=== PATIENT | female | born 1965 | race Caucasian/White ===

== ENCOUNTER 2017-05-31 08:26 | Emergency (ER) | END 2017-05-31 10:51 | disposition home or self-care (01) ==

== ENCOUNTER 2017-06-06 19:14 | Emergency (ER) | END 2017-06-06 21:25 | disposition home or self-care (01) ==

== ENCOUNTER 2017-10-13 02:59 | Emergency (ER) | END 2017-10-13 06:59 | disposition home or self-care (01) ==

== ENCOUNTER 2017-11-05 16:09 | Emergency (ER) | END 2017-11-05 21:38 | disposition home or self-care (01) ==

== ENCOUNTER 2018-08-22 22:19 | Emergency (ER) | payer OTHER ==
[~2018-08-22] VITALS: Ht 157.5 cm; Wt 62.6 kg
[~2018-08-22 22:19] MED LIST: HYDR-4011 PO; NEO500 PO; RIFA550T4 PO
[2018-08-22 22:41] VITALS: Ht 157.5 cm; Wt 62.6 kg
[2018-08-23] MEDS ORDERED: LIDOCAINE/MYLANTA 40 ML BTL PO ONE (02:00)
[2018-08-23] MEDS ORDERED: CEPH-443 PO (02:21)
[2018-08-23] MEDS ORDERED: OMEP40CA6 PO (02:21)
[2018-08-23 02:43] VITALS: BP 121/56; PULSE 60; RESP 16
--- NOTE | 2018-08-24 23:13 | ERD ---
ER Documentation Chief Complaint Chief Complaint urine smells x 3 days, diarrhea lately, too HPI To the emergency room with multiple complaints. Patient actually came in to bring in daughter however states "I am here so I might as well have you check me out too." Patient states she has been having abdominal pain for 1 year that starts at her umbilicus and "fans out" she states she has had multiple workups including EGDs, colonoscopies, CT scans, and "nobody can tell me what is wrong with me." She has primary care doctor and GI doctor, she has been diagnosed with GERD and IBS. She states her symptoms are basically the same today except over the last week she has noticed an unusual odor in her urine. She reports subjective fevers. Denies pelvic pain, denies flank pain, denies hematuria, denies frequency or burning with urination. ROS All systems reviewed and are negative except as per history of present illness. Medications Home Meds Active Scripts Omeprazole* (Omeprazole*) 40 Mg Capsule.dr, 40 MG PO DAILY for 30 Days, #30 CAP Prov:EFREM ARENAS NP 08/23/18 Cephalexin* (Keflex*) 500 Mg Capsule, 500 MG PO BID for 7 Days, CAP Prov:EFREM ARENAS ENVIRONMENTAL SAMPLER 08/23/18 Hydrocodone/Acetaminophen ([place] 5-325 Tablet) 1 Each Tablet, 1 TAB PO Q6H PRN for PAIN, #7 TAB Prov:LEKKOS,APOSTOLOS A. DO 11/05/17 Neomycin Sulfate* (Neomycin Sulfate*) 500 Mg Tab, 500 MG PO BID, #10 TAB Prov:LEKKOS,APOSTOLOS A. DO 11/05/17 Rifaximin* (Xifaxan*) 550 Mg Tablet, 550 MG PO BID for 10 Days, TAB Prov:LEKKOS,APOSTOLOS A. 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,GALLBLADDER REMOVAL ) Anesthesia Reaction: No Hx Neurological Disorder: No Hx Respiratory Disorders: No Hx Cardiac Disorders: No Hx Psychiatric Problems: No Hx Miscellaneous Medical Probl: Yes (migraine headache) Hx Alcohol Use: No Hx Substance Use: No Hx Tobacco Use: No Smoking Status: Never smoker FmHx Family History: No diabetes, No coronary disease, No other Physical Exam Vitals Vital Signs Date Temp Pulse Resp B/P (MAP) Pulse Ox O2 O2 Flow FiO2 Time Delivery Rate 08/23/18 97.7 60 16 121/56 98 Room Air 02:43 (77) 08/22/18 98.7 71 18 134/78 98 22:41 (96) Physical Exam General: alert and oriented x4, no acute distress HEENT: normocephalic, atraumatic, PERRL, tympanic membranes normal, no nasal discharge, neck nontender, without lymphadenopathy, pharynx nonerythematous Cardiovascular: regular rate and rhythm, normal peripheral perfusion Respiratory: lungs clear to auscultation and percussion, without rales, without rhonchi, without wheezing, normal breath sounds, respirations non labored, normal air movement in lung reid Gastrointestinal: abdomen soft, non-distended, no tenderness to palpation in the suprapubic area, no guarding, no rebound Psychiatric: demonstrates good judgment and reason and normal affect during examination Results 24 hrs Laboratory Tests Test 08/23/18 01:55 Bedside Urine pH (LAB) 7.0 Bedside Urine Protein (LAB) Negative Bedside Urine Glucose (UA) Negative Bedside Urine Ketones (LAB) Negative Bedside Urine Blood Trace-intact Bedside Urine Nitrite (LAB) Negative Bedside Urine Leukocyte Esterase (L Trace Current Medications Medications Dose Sig/Jermaine Start Time Status Last (Trade) Ordered Route PRN Stop Time Admin Dose Reason Admin 40 ml ONCE ONCE 08/23/18 DC 08/23/18 Miscellaneous PO 02:00 02:02 Medication 08/23/18 02:01 (Gi Cocktail (2)) Procedures/MDM This 53 yo female presents with dysuria symptoms of malodorous urine and frequency. Her urine test indicates UTI due to presence of hematuria and leukocytes. Patient was instructed on self care including increasing hydration, completing antibiotics, and need to follow-up with PMD to reassess hematuria. There is low suspicion for pyelonephritis, vaginitis, STI, or interstitial cystitis due to absence of clinical findings that would support a diagnosis more serious than uncomplicated UTI. These diagnoses have been considered and excluded clinically. Nonetheless, it is understood by both the patient and provider that no clinical or diagnostic assessment can entirely exclude such diseases. Patient has been instructed on signs and symptoms of concern or with evolving condition with strict instructions to return to ED for reevaluation. Departure Diagnosis: Primary Impression: GERD (gastroesophageal reflux disease) Additional Impression: Urinary tract infection Condition: Stable Patient Instructions: Understanding Urinary Tract Infections (UTIs), When Your Child Has a Urinary Tract Infection (UTI) Additional Instructions: Call your primary care doctor TOMORROW for an appointment during the next 1 WEEK.Tell the civil engineering assistant that you were referred from this facility.See the doctor sooner or return here if your condition worsens before your appointment time. Follow-up with your primary care doctor for repeat urinalysis to check for blood in urine within 6 weeks of completing antibiotics. Take entire course of antibiotic. Stay well-hydrated. Add probiotic to your diet to help with your GI symptoms and to prevent secondary infection such as a yeast infection from taking antibiotics for UTI. You can get probiotics through yogurt that has live active yogurt cultures or probiotic pills. Return to the emergency room immediately with change or worsening in her symptoms. EFREM ARENAS NP Aug 24, 2018 23:13
== END 2018-08-23 02:43 | disposition home or self-care (01) ==
LOC: FTE 22:19
DX: K21.9 Gastro-esophageal reflux disease without esophagitis (principal); N39.0 Urinary tract infection, site not specified
CPT/HCPCS: 81003; 99283

== ENCOUNTER 2018-10-15 11:23 | Emergency (ER) | payer SELFPAY ==
[~2018-10-15] VITALS: Ht 157.5 cm; Wt 62.8 kg
[~2018-10-15 11:23] MED LIST changes: +CEPH-443 PO; +OMEP40CA6 PO
[2018-10-15 11:28] VITALS: Ht 157.5 cm; Wt 62.8 kg
[2018-10-15] MEDS ORDERED: SOD CHLORIDE 0.9% 500 ML IV STA (16:13)
[2018-10-15] MEDS ORDERED: KETOROLAC 15 MG INJ IV STA (16:13)
[2018-10-15] MEDS ORDERED: ONDANSETRON 4 MG INJ IV STA (16:13)
--- NOTE | 2018-10-15 16:15 | ERD ---
ER Documentation Chief Complaint Chief Complaint Pt with chronic AP X 1 year and pelvic pain X 1 week, frequent UTI. HPI 53-year-old female, with history of chronic abdominal pain for more than 1 year, presents to the emergency department, complaining of worsening of pain during the last week. The patient also reports pain with urination no specific dysuria, no hematuria, no diarrhea or constipation. The patient denies fever or chills, no vaginal discharge. Her LMP was 1018. ROS All systems reviewed and are negative except as per history of present illness. Medications Home Meds Active Scripts Omeprazole* (Omeprazole*) 40 Mg Capsule.dr, 40 MG PO DAILY for 30 Days, #30 CAP Prov:EFREM ARENAS MICROBIOLOGICAL ANALYST 08/23/18 Cephalexin* (Keflex*) 500 Mg Capsule, 500 MG PO BID for 7 Days, CAP Prov:EFREM ARENAS MICROBIOLOGICAL ANALYST 08/23/18 Hydrocodone/Acetaminophen ([place] 5-325 Tablet) 1 Each Tablet, 1 TAB PO Q6H PRN for PAIN, #7 TAB Prov:LEKKOS,APOSTOLOS A. DO 11/05/17 Neomycin Sulfate* (Neomycin Sulfate*) 500 Mg Tab, 500 MG PO BID, #10 TAB Prov:LEKKOS,APOSTOLOS A. DO 11/05/17 Rifaximin* (Xifaxan*) 550 Mg Tablet, 550 MG PO BID for 10 Days, TAB Prov:LEKKOS,APOSTOLOS A. 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,GALLBLADDER REMOVAL ) Anesthesia Reaction: No Hx Neurological Disorder: No Hx Respiratory Disorders: No Hx Cardiac Disorders: No Hx Psychiatric Problems: No Hx Miscellaneous Medical Probl: Yes (migraine headache) Hx Alcohol Use: No Hx Substance Use: No Hx Tobacco Use: No Smoking Status: Never smoker FmHx Family History: No diabetes, No coronary disease Physical Exam Vitals Vital Signs Date Temp Pulse Resp B/P (MAP) Pulse Ox O2 O2 Flow FiO2 Time Delivery Rate 10/15/18 98.3 74 15 133/65 99 11:28 (87) Physical Exam Const: No acute distress Head: Atraumatic Eyes: Normal Conjunctiva ENT: Normal External Ears, Nose and Mouth. Neck: Full range of motion. No meningismus. Resp: Clear to auscultation bilaterally Cardio: Regular rate and rhythm, no murmurs Abd: Soft, non tender, non distended. Normal bowel sounds Skin: No petechiae or rashes Back: No midline or flank tenderness Ext: No cyanosis, or edema Neur: Awake and alert Psych: Normal Mood and Affect Result Diagram: 10/15/18 1642 10/15/18 1722 Results 24 hrs Laboratory Tests Test 10/15/18 16:38 10/15/18 16:42 10/15/18 17:22 POC Beta HCG, Qualitative NEGATIVE White Blood Count 8.4 10^3/ul Red Blood Count 4.78 10^6/ul Hemoglobin 14.4 g/dl Hematocrit 42.7 % Mean Corpuscular Volume 89.3 fl Mean Corpuscular Hemoglobin 30.1 pg Mean Corpuscular 33.7 g/dl Hemoglobin Concent Red Cell Distribution Width 12.7 % Platelet Count 289 10^3/UL Mean Platelet Volume 10.4 fl Immature Granulocytes % 0.500 % Neutrophils % 68.2 % Lymphocytes % 21.7 % Monocytes % 8.3 % Eosinophils % 0.8 % Basophils % 0.5 % Nucleated Red Blood Cells % 0.0 /100WBC Immature Granulocytes # 0.040 10^3/ul Neutrophils # 5.8 10^3/ul Lymphocytes # 1.8 10^3/ul Monocytes # 0.7 10^3/ul Eosinophils # 0.1 10^3/ul Basophils # 0.0 10^3/ul Nucleated Red Blood Cells # 0.0 10^3/ul Urine Color YELLOW Urine Clarity SLIGHTLY CLOUDY Urine pH 5.0 Urine Specific [place] 1.013 Urine Ketones NEGATIVE mg/dL Urine Nitrite NEGATIVE mg/dL Urine Bilirubin NEGATIVE mg/dL Urine Urobilinogen NEGATIVE mg/dL Urine Leukocyte Esterase NEGATIVE Bryson/ul Urine Microscopic RBC 3 /HPF Urine Microscopic WBC 1 /HPF Urine Squamous Epithelial Cells FEW /HPF Urine Bacteria FEW /HPF Urine Hemoglobin 1+ mg/dL Urine Glucose NEGATIVE mg/dL Urine Total Protein NEGATIVE mg/dl Sodium Level 142 mmol/L Potassium Level 3.9 mmol/L Chloride Level 108 mmol/L Carbon Dioxide Level 25 mmol/L Anion Gap 9 Blood Urea Nitrogen 12 mg/dl Creatinine 0.51 mg/dl Est Glomerular Filtrat Rate mL/min > 60 mL/min Glucose Level 86 mg/dl Calcium Level 8.6 mg/dl Total Bilirubin 0.2 mg/dl Direct Bilirubin 0.00 mg/dl Indirect Bilirubin 0.2 mg/dl Aspartate Amino Transf (AST/SGOT) 22 IU/L Alanine 17 IU/L Aminotransferase (ALT/SGPT) Alkaline Phosphatase 80 IU/L Total Protein 7.2 g/dl Albumin 4.0 g/dl Globulin 3.20 g/dl Albumin/Globulin Ratio 1.25 Lipase 56 U/L Current Medications Medications Dose Sig/Jermaine Start Time Status Last (Trade) Ordered Route PRN Stop Time Admin Dose Reason Admin Sodium 500 ml @ Q1H STAT 10/15/18 DC 10/15/18 Chloride 500 mls/hr IV 16:13 10/15/18 16:40 17:12 Ondansetron 4 mg ONCE STAT 10/15/18 DC 10/15/18 HCl (Zofran IV 16:13 10/15/18 16:40 Inj) 16:16 Ketorolac 15 mg ONCE STAT 10/15/18 DC 10/15/18 Tromethamine IV 16:13 10/15/18 16:40 (Toradol) 16:16 IV Flush 10 ml STK-MED 10/15/18 DC (NS 10 ml) ONCE .ROUTE 18:01 10/15/18 18:02 Sodium 100 ml @ ud STK-MED 10/15/18 DC Chloride ONCE .ROUTE 18:10/15/18 18:02 Iohexol 150 ml STK-MED 10/15/18 DC (Omnipaque ONCE .ROUTE 18:10/15/18 300mg/ ml) 18:02 Procedures/MDM Vital signs stable. Differential diagnosis include but not limited to: UTI, colitis, gastroenteritis, kidney stones, irritable bowel syndrome, inflammatory bowel syndrome, malabsorption syndrome, cholelithiasis, food intolerance, medication side effect, pancreatitis, diverticulitis, bowel obstruction. Physical examination and clinical presentation consistent most likely with chronic abdominal pain without evidence of acute abdomen. During the ED course the patient remained stable, no new complaints. The patient received treatment with IV fluids and IV medications presenting overall improvement of the symptoms. Results and clinical impression discussed with the patient who agrees with management. The patient is stable to be treated outpatient and will be discharged home; some side effects of prescribed medications (headache, rash, n ausea, vomiting, diarrhea, drowsiness, habituation, bleeding, hypertension, interactions with other medications) were reviewed. The patient was informed that the evaluation in the emergency department has been done to rule out an acute emergency, therefore, chronic conditions like malignancy or other diseases have not been evaluated; therefore, the patient was instructed to follow up with the primary care provider in the next 48h. If symptoms persist, worsen or new symptoms develop, then patient should return to the ED immediately. Instructions explained and given directly by me to the patient with acknowledgment and demonstrated understanding. Disclaimer: Inadvertent spelling and grammatical errors are likely due to EHR/dictation software use and do not reflect on the overall quality of patient care. Also, please note that the electronic time recorded on this note does not necessarily reflect the actual time of the patient encounter. Departure Diagnosis: Primary Impression: Abdominal pain Condition: Stable Additional Instructions: Thank you very much for allowing us to participate in your care. Your health and safety is our top priority at [facility]. The evaluation in the emergency department has been done to rule out an acute emergency, therefore, chronic conditions like malignancy or other diseases have not been evaluated; therefore, you need to follow up with a primary care provider in the next 48h. If symptoms persist, worsen or new symptoms develop, then patient should return to the ED immediately. Call your primary care doctor TOMORROW for an appointment during the next 2-4 days and bring all the information provided. Have prescriptions filled and follow precisely the directions on the label. If the symptoms get worse and your provider is unavailable, return to the Emergency Department immediately. SRINIVAS CLAY MD October 15, 2018 16:15
[2018-10-15] MEDS ORDERED: IOHEXOL 300MG/ML 150 ML BTL ONE (18:01)
[2018-10-15] MEDS ORDERED: SOD CHLORIDE 0.9% 100 ML ONE (18:01)
[2018-10-15] MEDS ORDERED: HYDR-4011 PO (19:42)
[2018-10-15 19:52] VITALS: BP 125/69; PULSE 80; RESP 18
== END 2018-10-15 19:59 | disposition home or self-care (01) ==
LOC: FTE 11:23
DX: R10.9 Unspecified abdominal pain (principal); R10.2 Pelvic and perineal pain
CPT/HCPCS: 36415; 74177; 80053; 81001; 81025; 83690; 85025; 96374; 96375; 99285; J1885; J2405; J7040; Q9967